=== PATIENT | male | born 1985 | race Caucasian/White ===

== ENCOUNTER 2017-11-28 20:14 | Emergency (ER) | payer MEDICAID ==
[~2017-11-28] VITALS: Ht 172.7 cm; Wt 109.0 kg
[2017-11-28] MEDS ORDERED: CYCL-1 PO (22:43)
[2017-11-28] MEDS ORDERED: ketorolac trometh inj. 60 MG/2 ML VIAL IM ONE (22:45)
[2017-11-28 23:27] VITALS: BP 155/75
== END 2017-11-28 23:34 | disposition home or self-care (01) ==
LOC: ER 20:14
DX: M54.5 Low back pain (principal); Z79.899 Other long term (current) drug therapy; X50.1XXA Overexertion from prolonged static or awkward postures, initial encounter; Y93.89 Activity, other specified; Y92.89 Other specified places as the place of occurrence of the external cause; Y99.8 Other external cause status
CPT/HCPCS: 71045; 72070; 96372; 99284; J1885

== ENCOUNTER 2021-05-15 23:04 | Emergency (ER) | payer MEDICAID ==
[~2021-05-15 23:04] MED LIST: CYCL-1 PO
== END 2021-05-16 00:15 | disposition left against medical advice (07) ==
LOC: ER 23:04
DX: Z53.21 Procedure and treatment not carried out due to patient leaving prior to being seen by health care provider (principal)